=== PATIENT | male | born 1995 | race African-American/Black ===

== ENCOUNTER 2020-04-09 11:55 | Emergency (ER) | payer OTHER ==
[~2020-04-09] VITALS: Ht 162.6 cm; Wt 48.0 kg
[2020-04-09 12:17] VITALS: BP 100/52
== END 2020-04-09 13:02 | disposition left against medical advice (07) ==
LOC: ER 11:55
DX: Z53.21 Procedure and treatment not carried out due to patient leaving prior to being seen by health care provider (principal)